=== PATIENT | female | born 1940 | race Caucasian/White ===

== ENCOUNTER 2016-11-20 15:55 | Inpatient (IN) | payer MEDICARE, MEDICAID ==
[~2016-11-20] VITALS: Ht 152.4 cm; Wt 99.4 kg
[2016-11-20 15:53] VITALS: BP 129/76; PULSE 71; RESP 21; O2SAT 94
[2016-11-20 16:16] LABS: BASOPHILS % (AUTO) 0.1 % (0-3); EOSINOPHILS % (AUTO) 0 % (0-5); MONOCYTES % (AUTO) 4.8 % (4-12); Mean Corpuscular Hemoglobin 28.6 pg (27.0-35.0); NEUTROPHILS % (AUTO) 79.6 % (40-74); Platelet Count 305 bil/L (150-400)
--- NOTE | 2016-11-20 16:25 | DRSVH ---
PROCEDURE: X-RAY CHEST ONE VIEW, PORTABLE ([id number]) INDICATIONS: SHORTNESS OF BREATH TECHNIQUE: One view of the chest was acquired. COMPARISON: None. FINDINGS: Surgical changes and devices: AICD is noted. Lungs and pleura: No pleural effusions or pneumothorax. Increased opacification of the lung bases bi laterally compatible with atelectasis, pneumonia or aspiration. Mediastinum: Mediastinal contours appear normal. Heart size is enlarged. Bones and chest wall: No suspicious bony lesions. Overlying soft tissues appear unremarkable. IMPRESSION: 1. Increased bibasilar opacification compatible with atelectasis, pneumonia or aspiration. Please cor relate with clinical and laboratory data. 2. Cardiomegaly. Dictated by: Corinne Badillo MD, PhD on 11/20/2016 at 16:23 Approved by: Corinne Badillo MD, PhD on 11/20/2016 at 16:24
--- NOTE | 2016-11-20 16:25 | ED.REPORT ---
HPI-Dyspnea / Wheezing Date of Service Nov 20, 2016 ED Provider: Alexi Russo MD A 76 year old female with an extensive medical history including hypertension, diabetes, peripheral neuropathy, CHF, and CAD s/p cardiac stenting and AICD pacemaker placement presents to the ED via EMS with shortness of breath onset two days ago. The patient also reports diarrhea, finger and toe paresthesias, memory problems, confusion, and feeling as though she is "not in her body." EMS found the patient breathing shallowly with a respiration rate of 34, a BP of 164 /70, and a pulse ox of 94% on 2L O2. The patient denies fever, chest pain, nausea, vomiting, dysuria, or other symptoms. She is bladder incontinent at baseline. The patient has been generally ill for the past three months with both influenza and pneumonia requiring hospitalizations. One week ago she was placed on a Prednisone taper and Zithromax for possible pneumonia, but finished the Zithromax two days ago. The patient is on 2L O2 at home. She comes from her assisted living home accompanied by her daughter. Nursing Notes Stated Complaint: SHORTNESS OF BREATH Chief Complaint: Respiratory Distress Nursing Notes Reviewed: Yes Allergies: Coded Allergies: Penicillins (Verified Allergy, Severe, Rash,Itching,, 11/20/16) celecoxib (Verified Allergy, Severe, Anaphylaxis, 11/20/16) levofloxacin (Verified Allergy, Severe, Extrapyramidal Symptoms, 11/20/16) primidone (Verified Allergy, Severe, Hallucinations, 11/20/16) Sulfa (Sulfonamide Antibiotics) (Verified Adverse Reaction, Severe, Nausea ,Vomiting, 11/20/16) acetaminophen (Verified Adverse Reaction, Severe, Nausea, 11/20/16) butorphanol (Verified Adverse Reaction, Severe, Nausea,Vomiting, 11/20/16) doxycycline (Verified Adverse Reaction, Severe, Diarrhea, 11/20/16) hydrocodone (Verified Adverse Reaction, Severe, Nausea, 11/20/16) fluoxetine (Verified Adverse Reaction, Unknown, 11/20/16) Scheduled Allopurinol (Allopurinol) 100 Mg Tablet 100 MG PO DAILY Aspirin (Aspirin) 81 Mg Tablet 81 MG PO DAILY Atorvastatin (Lipitor) 80 Mg Tablet 40 MG PO HS Beclomethasone Dipropionate (Qvar) 8.7 Gm Aer.w.adap 1 PUFF INHALATION BID Carvedilol (Carvedilol) 25 Mg Tablet 25 MG PO BID Cyanocobalamin (Vitamin B-12) (B-12) 2,500 Mcg Tab.subl 2,500 MCG SL DAILY Furosemide (Furosemide) 40 Mg Tablet 60 MG PO BID Gabapentin (Gabapentin) 600 Mg Tablet 600 MG PO TID Insulin Glargine (Lantus U100 Insulin Vial) 100 Unit/Ml Vial 90 UNIT SUBQ HS Isosorbide MN ER (Isosorbide MN ER) 30 Mg Tab.er.24h 30 MG PO DAILY Levothyroxine (Levothyroxine) 75 Mcg Tablet 75 MCG PO DAILY Lisinopril (Lisinopril) 10 Mg Tablet 5 MG PO DAILY Omeprazole (Omeprazole) 20 Mg Capsule.dr 20 MG PO BID Oxybutynin Chloride (Oxybutynin Chloride) 5 Mg Tablet 5 MG PO BID Potassium Chloride ER (Potassium Chloride ER) 10 Meq Tablet 5 MEQ PO DAILY TAKE WITH FOOD Prednisone (PredniSONE) 10 Mg Tablet 10 MG PO DAILY x4 more days (taper) Venlafaxine (Venlafaxine) 75 Mg Tablet 150 MG PO QAM Venlafaxine (Venlafaxine) 75 Mg Tablet 75 MG PO HS Scheduled PRN Albuterol Neb Soln (Albuterol Neb Soln) 0.63 Mg/3 Ml Vial.neb 0.63 MG INHALATION Q4H PRN PRN For Shortness of Breath Albuterol Sulfate (Ventolin HFA Inhaler) 200 Puff/18 Gm Inhaler 1-2 PUFFS INHALATION QID PRN PRN For Shortness of Breath Alprazolam (Alprazolam) 1 Mg Tablet 1 MG PO HS PRN PRN Insomnia Nitroglycerin SL (Nitrostat) 0.4 Mg Tab.subl 0.4 MG SL Q5MIN PRN PRN For Chest Pain Tizanidine (Tizanidine) 2 Mg Tablet 2 MG PO HS PRN PRN For Spasm oxyCODONE-Acetaminophen 5-325 mg (oxyCODONE-Acetaminophen 5-325 mg) 1 Each Tablet 1 EACH PO QID PRN PRN For Pain General Time Seen by MD: 16:23 Transferred From: retirement Chief Complaint Shortness of breath Hx Obtained From: Patient, Daughter Arrived By: Ambulance Sudden in Onset?: No Onset Occurred: 2 days ago Symptom Duration: Since onset Severity: Current: No pain currently Severity: Maximum: No pain Associated with: Denies: Chest pain Pertinent Negative: Relieved by nothing Context Related History: Reports: Anxiety, Congestive heart failure, Coronary artery disease, Pneumonia Recent Healthcare: Recent hospitalization Similar Sx Previous: Yes Past Medical History Past Medical History Notes: As of 11/20/16: Last admit August 2016 with Influenza at [facility] Past Medical History Hypertension Hypothyroidism Spinal stenosis Peripheral neuropathy GERD Obstructive sleep apnea w/o CPAP Anxiety Hyperlipidemia CHF CAD Diabetes mellitus on insulin Past Surgical History S/p CAD with stent placement, pacemaker placement, and AICD Hysterectomy Appendectomy Gastrectomy Lumbar fusion Bilateral knee replacements Right inguinal hernia repair Cardiac catheterization (July 2012 at [facility]) Social History Other Social History: Good social support, Lives in [facility] Review of Systems Review of Systems Note: + Finger and toe paresthesias Constitutional: Denies: Fever Respiratory: Reports: Shortness of breath Cardiovascular: Denies: Chest pain Complete sys rev & neg: except as marked. GI: Reports: Diarrhea, Denies: Nausea, Vomiting Female: Reports: Incontinence (At baseline), Denies: Dysuria Neurologic: Reports: Confusion ("Memory problems") Psychiatric: Reports: Change mental status (Feeling as though she is "not in her body.") Physical Exam Initial Vital Signs Vital Signs (First) Date Time Temp Pulse Resp B/P Pulse Ox O2 Delivery O2 Flow Rate FiO2 11/20/16 15:53 36.7 71 21 129/76 94 Nasal Cannula 2 Initial VS: Reviewed Head / Eyes: Atraumatic, Normocephalic Skin: Warm, Dry Psychiatric: Mood/affect normal, Behavior normal, Normal thought content General/Constitutional: Awake, Alert Respiratory / Chest: No respiratory distress Diminished Breath Sounds: Positive: Decreased L Wheezing / Retractions: Positive: Wheezing moderate (Scattered) Cardiovascular: Heart rate NL, Regular rhythm, No murmurs, No rubs Abdomen: Non-tender, BS normoactive Neurologic: Oriented X3, Speech NL Interpretation & Diagnostics ARTERIAL BLOOD GAS Time: 17:00 pH 7.47 pCO2 42 pO2 84.9 cHCO3 30 URINE DIPSTICK: 1.010 sp gravity 6 pH Normal Glucose Normal Urobilinogen Otherwise Negative Lab Results Interpretation Result Diagram: 11/20/16 1607 11/20/16 1607 Test 11/20/16 16:07 11/20/16 18:00 White Blood Count 13.5th/mm3 (3.8-10.1) Red Blood Count 3.91mil/mm3 (3.90-5.20) Hemoglobin 11.2g/dL (12.0-15.6) Hematocrit 35.6% (35.0-46.0) Mean Corpuscular Volume 91.0fL (81-100) Mean Corpuscular Hemoglobin 28.6pg (27.0-35.0) Mean Corpuscular Hemoglobin Concent 31.5% (32.0-37.0) Red Cell Distribution Width 15.8% (12.3-15.4) Platelet Count 305bil/L (150-400) Neutrophils (%) (Auto) 79.6% (40-74) Lymphocytes (%) (Auto) 14.9% (14-46) Monocytes (%) (Auto) 4.8% (4-12) Eosinophils (%) (Auto) 0% (0-5) Basophils (%) (Auto) 0.1% (0-3) Prothrombin Time 10.2sec (8.1-12.5) Prothromb Time International Ratio 0.95ratio Sodium Level 139mEq/L (134-144) Potassium Level 3.8mEq/L (3.5-5.2) Chloride Level 98mEq/L (97-108) Carbon Dioxide Level 26mmol/L (18-29) Blood Urea Nitrogen 17mg/dL (8-27) Creatinine 0.77mg/dL (0.57-1.00) Estimat Glomerular Filtration Rate 105mL/min (>59) Glucose Level 139mg/dL (60-99) Calcium Level 8.7mg/dL (8.5-10.1) Magnesium Level 1.8mg/dL (1.6-2.6) Total Bilirubin 0.2mg/dL (0.0-1.2) Aspartate Amino Transf (AST/SGOT) 11U/L (0-50) Alanine Aminotransferase (ALT/SGPT) 16U/L (0-32) Alkaline Phosphatase 79U/L (25-165) Troponin T < 0.010ug/L (0.0-0.011) Pro-B-Type Natriuretic Peptide 100.9pg/mL (0-738) Total Protein 6.4g/dL (6.4-8.4) Albumin 3.7g/dL (3.4-5.0) Hold Marquez Top Tube Received (Received) Urine Color Yellow (YELLOW) Urine Appearance Hazy (CLEAR,HAZY) Urine pH 6.5 (5.0-8.0) Urine Specific [place] 1.010 (1.003-1.035) Urine Protein Negativemg/dL (NEG,TRACE) Urine Glucose (UA) Negativemg/dL (NEGATIVE) Urine Ketones Negativemg/dL (NEGATIVE) Urine Occult Blood Negative (NEGATIVE) Urine Nitrite Negative (NEGATIVE) Urine Bilirubin Negative (NEGATIVE) Urine Urobilinogen Normalmg/dL (NORMAL) Urine Leukocyte Esterase Negative (NEGATIVE) Urine RBC 0-2/hpf (0-2) Urine WBC 0-5/hpf (0-5) Urine Epithelial Cells Moderate/hpf (NONE-MOD) Urine Crystals None seen (NONE SEEN) Urine Bacteria Few/hpf (NONE-FEW) Urine Hyaline Casts None/lpf (NONE) Urine Granular Casts None seen (NONE SEEN) Urine Waxy Casts None seen (NONE SEEN) Urine Red Blood Cell Casts None seen (NONE SEEN) Urine White Blood Cell Casts None seen (NONE SEEN) Urine Mucus None seen (None Seen) Urine Trichomonas None seen (NONE SEEN) Urine Yeast None (NONE SEEN) Urinalysis Comment None Urine Culture Reflexed Not indicated Pulse Oximetry Interpretation Pulse Oximetry Interpretation: 97% on 2L O2 ECG Interpretation ECG Interpretation: Paced rhythm rate 73 Time: 16:09 Interpreted by: ED physician X-Ray Chest Interpretation Chest Xray Interpretation: IMPRESSION: 1. Increased bibasilar opacification compatible with atelectasis, pneumonia or aspiration. Please correlate with clinical and laboratory data. 2. Cardiomegaly. Dictated by: Corinne Badillo MD, PhD on 11/20/2016 at 16:23 View: Portable, 1 view Interpretation / Wet Read by: Interpret - Radiologist Re-Eval/Medical Decision Med Decision/Clinical Course CURB-65 SCORE IS 2 FOR AGE AND CONFUSION Blood cultures were obtained, the patient is hemodynamically stable with a high normal lactate. She was given 1 L normal saline. She recently been on azithromycin, no recent hospitalizations, last admission was more than 3 months ago were not treated for healthcare associated pneumonia. IV Rocephin was started in the emergency department. We also did restart the azithromycin as IV. Source of Hx: Old records Re-Evaluation/Progress : Time of Eval: 18:12 Patient Status: Condition improved Re-Evaluation/Progress Note: Discussed with patient lab and x-ray results, diagnosis, and plan for admit. Patient agrees with plan for care and all questions were addressed. Code status discussed in the presence of her daughter. Patient is DNR. Consultation : Referral / Consult Name: Manuel Pickard MD Consulted With: Hospitalist Call Returned at: 20:18 Skein Inspector: Agrees with eval, Agrees with plan, Accepts admit Counseled Regarding: Diagnosis, Lab results, Need for admission Discharge & Departure Impression: Primary Impression: Pneumonia Pneumonia type: due to unspecified organism Laterality: bilateral Lung location: lower lobe of lung Qualified Code: J18.9 - Pneumonia, unspecified organism Disposition: ADMITTED TO HOSPITAL Discharge Condition All VS Reviewed: Yes Condition: Improved Scribe Attestation Portions of this note were transcribed by Angely Vazquez. I, Dr. Russo, personally performed the history, physical exam, and medical decision-making; I reviewed and confirmed the accuracy of the information in the transcribed note. Signed by: Amaya Torres, 11/20/2016, 2043 Alexi Russo MD Nov 20, 2016 16:25 ANGELY VAZQUEZ Nov 20, 2016 16:34
[2016-11-20 16:42] LABS: TROPONIN T < 0.010 ug/L (0.0-0.011)
[2016-11-20 16:48] LABS: Magnesium 1.8 mg/dL (1.6-2.6)
[2016-11-20 17:03] VITALS: BP 127/74; PULSE 71; RESP 19; O2SAT 97
--- NOTE | 2016-11-20 17:07 | ABG ---
DateTimeAnalyzed 17:04:00 -_ pH ____7.469 - 7.350 7.450 pCO2 ___41.9__ -mmHg 35.0 45.0 pO2 ___84.9__ -mmHg 69.0 116 HCO3- ___30.0__ -mmol/L 22.0 26.0 ABE ____6.1__ -mmol/L -2.0 2.0 tHb ___11.3__ -g/dL O2Hb ___95.8__ -% COHb ____1.0__ -% MetHb ____1.0__ -% sO2 ___97.8__ -% FIO2 ___28.0__ -% Drawn By as - Date/Time Notified____ 17:06:00 -_ Spontaneous_RR ___16.0__ -b/min Liter_Flow ____2.0__ -L/min Oxygen Device 1 __CANNULA - Notified By AMS - Notified Whom _DR SLACK - B 753 -mmHg tO2 ___15.3__ -Vol% Joe test _Positive -
[2016-11-20] MEDS ORDERED: cefTRIAXone Inj 2,000 MG in Dextrose 5% Minibag Plus 50 ML IV ONE (18:10)
[2016-11-20] MEDS ORDERED: Azithromycin Inj 500 MG in Dextrose 5% w/Vial Mate 250 ML IV ONE (18:10)
[2016-11-20 18:44] LABS: APPEARANCE,URINE HAZY (CLEAR,HAZY); COLOR,URINE YELLOW (YELLOW)
[2016-11-20 18:45] LABS: OCCULT BLOOD,URINE NEGATIVE (NEGATIVE); PH,URINE 6.5 (5.0-8.0); UROBILINOGEN,URINE NORMAL (NORMAL)
[2016-11-20] MEDS ORDERED: 0.9% Sodium Chloride 1,000 ML IV ONE (19:45)
[2016-11-20] MEDS ORDERED: Haloperidol 5 mg/mL Inj IVPUSH ONE (19:55)
[2016-11-20] MEDS ORDERED: BECL8.7A5 INHALATION (20:10)
[2016-11-20] MEDS ORDERED: OXYC1TAB24 PO (20:10)
[2016-11-20] MEDS ORDERED: ALBU18HF INHALATION (20:10)
[2016-11-20] MEDS ORDERED: ALPR1TAB7 PO (20:18)
[2016-11-20] MEDS ORDERED: 0.9% Sodium Chloride 1,000 ML IV SCH (20:33)
[2016-11-20] MEDS ORDERED: Polyethylene Glycol (PEG) 17 Gm Powder PO PRN (20:35)
[2016-11-20] MEDS ORDERED: Alum-Mag Hydrox-Simeth 30 mL Suspension PO PRN (20:35)
[2016-11-20 20:47] LABS: INR 0.95 ratio
[2016-11-20 20:49] VITALS: BP 139/61; PULSE 80; RESP 19; O2SAT 95
[2016-11-20] MEDS ORDERED: GABA600T2 PO (20:53)
[2016-11-20] MEDS ORDERED: OXYB5TAB10 PO (20:53)
[2016-11-20] MEDS ORDERED: ASPI-973 PO (20:53)
[2016-11-20] MEDS ORDERED: TIZA2TAB3 PO (20:53)
[2016-11-20] MEDS ORDERED: ALBU0.63 INHALATION (20:53)
[2016-11-20] MEDS ORDERED: OMEP20CA11 PO (20:53)
[2016-11-20] MEDS ORDERED: PSYL0.5244 PO (20:53)
[2016-11-20] MEDS ORDERED: CARV25TA2 PO (20:53)
[2016-11-20] MEDS ORDERED: ZYL100 PO (20:53)
[2016-11-20] MEDS ORDERED: FURO40TA4 PO (20:53)
[2016-11-20] MEDS ORDERED: PRE10 PO (20:53)
[2016-11-20] MEDS ORDERED: NITR0.4T SL (20:53)
[2016-11-20] MEDS ORDERED: CYAN25006 SL (20:53)
[2016-11-20] MEDS ORDERED: INSU100V7 SUBQ (20:53)
[2016-11-20] MEDS ORDERED: FLUT16SP NS (20:53)
[2016-11-20] MEDS ORDERED: ATOR80TA PO (20:53)
[2016-11-20] MEDS ORDERED: HYDR25TA4 PO (20:53)
[2016-11-20] MEDS ORDERED: LISI10TA PO (20:53)
[2016-11-20] MEDS ORDERED: ISOS30TA4 PO (20:53)
[2016-11-20] MEDS ORDERED: VENL75TA3 PO ×2 (20:53)
[2016-11-20] MEDS ORDERED: LEVO75TA4 PO (20:53)
[2016-11-20] MEDS ORDERED: POTA10TA12 PO (20:53)
[2016-11-20 21:13] VITALS: BP 169/75; PULSE 83; RESP 18; O2SAT 97
[2016-11-20] MEDS: Budesonide 0.5 mg/2 mL Inhalation Solution NEB SCH (21:30)
[2016-11-20] MEDS ORDERED: Glucose 40% Oral Gel 15 Gm Tube PO PRN (21:35)
[2016-11-20] MEDS: Insulin LISPRO 300 Unit/3 mL Inj SUBQ SCH (22:00)
[2016-11-20] MEDS: oxyCODONE-Acetamin 5-325 mg Tablet PO PRN (22:18)
--- NOTE | 2016-11-20 22:27 | PCM.HPMED ---
Subjective Date of Service Nov 20, 2016 Primary Provider: Admitting Physician: Manuel Pickard MD Primary Care Physician: Minerva Varma MD Attending Physician: Manuel Pickard MD Chief Complaint: Shortness of breath History of Present Illness: Patient is a 76 y.o. 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 She presented to the ED via EMS from [facility] with her daughter for worsening shortness of breath over the past two days with worsening non productive cough. Patient stated that she has become increasingly fatigued, short of breath, confused, she uses home oxygen, albuterol inhalers, and steroid inhaler and reported that she has had to increase her O2 at home from 2 L continous to 3 L and use her albuterol inhaler more but this has not made her better. She was seen by her PCP one week ago and placed on Xithromac and a predispose taper currently taking 10 mg PO QD, which she stated initially made her feel better but stopped working two days ago, patient reports good compliance with mediation. Patient denies fever, chills, nausea, vomiting, syncope, headache, change in vision, productive cough, coughing up blood, chest pain, chest pressure, edema in legs. Review of Systems: Comprehensive review of systems conducted and was negative except for the pertinent positives listed above. Allergies Coded Allergies: Penicillins (Verified Allergy, Severe, Rash,Itching,, 11/20/16) celecoxib (Verified Allergy, Severe, Anaphylaxis, 11/20/16) levofloxacin (Verified Allergy, Severe, Extrapyramidal Symptoms, 11/20/16) primidone (Verified Allergy, Severe, Hallucinations, 11/20/16) Sulfa (Sulfonamide Antibiotics) (Verified Adverse Reaction, Severe, Nausea ,Vomiting, 11/20/16) acetaminophen (Verified Adverse Reaction, Severe, Nausea, 11/20/16) butorphanol (Verified Adverse Reaction, Severe, Nausea,Vomiting, 11/20/16) doxycycline (Verified Adverse Reaction, Severe, Diarrhea, 11/20/16) hydrocodone (Verified Adverse Reaction, Severe, Nausea, 11/20/16) fluoxetine (Verified Adverse Reaction, Unknown, 11/20/16) Home Medications Albuterol Neb Albuterol inhaler Allopurinol 100 mg PO Daily Alprazolam 1 mg PO NGUYEN Aspirin 81 mg daily Qvar inhaler Carvedilol 25 mg PO BID Furosemide 60 mg BID Gabapentin 600 mg PO TID Insulin Glargine 90 units HS Isosorbide ER 30 mg PO QD Levothyroxine 75 mcg PO QD Lisinopril 10 mg PO QD Nitroglycerin 0.4 mg SL PRN for CP Omeprazole 20 mg BID Oxycodone 5-325 mg QD Tizanidine 2 mg PO HS PRN Venlafacine 150 mg PO AM and 75 mg PO HS PMH Diabetes Type II insulin dependent 90 units lantus HS, Hypertension Hypothyroidism Spinal stenosis Peripheral neuropathy GERD Obstructive sleep apnea w/o CPAP Anxiety Hyperlipidemia CHF CAD . Surgical History Cholecystectomy s/p CABG 2 vessels Appendectomy Bilateral knee replacement Back fusion IVCD placement Family History Breast cancer CAD Social History Hx Alcohol Use: No Hx Substance Use: No Hx Tobacco Use: No Exam Vital Signs Vital Sign - Last Date Time Temp Pulse Resp B/P Pulse Ox O2 Delivery O2 Flow Rate FiO2 11/20/16 21:13 36.6 83 18 169/75 97 Nasal Cannula 2.00 Exam General: Alert, Oriented X3, Cooperative, No Acute Distress Head: Normocephalic, atraumatic. External ears normal. Eyes: PERRLA, EOMI. Anicteric sclerae. Mouth: Mouth Normal, Mucous Membranes Moist/[place], ASA grade III Neck: Neck supple with full range of motion. Chest & Lungs: Crackles heard at right lower lung base, Diffuse expiratory and inspiratory wheezes, rhonchi in in all lung lo. Egophony noted in right lower lung base, old surgical scar noted Cardiovascular: Regular Rate/Rhythm, Normal S1, Normal S2, No Murmurs/Rubs/ Gallops Abdomen: Non-tender, Non-distended, No masses, Normoactive bowel tones, Soft Musculoskeletal: Normal Range of Motion Extremities: No cyanosis/clubbing/edema bilaterally Neurological: Grossly Neurologically Intact, Cranial Nerves 2-12 Intact, Normal Speech, Strength Normal 4/4 ext, Normal Gait, Sensation Intact, Cerebellar Function nl Finger-Nose Lab and Diagnostics Result Diagram: 11/20/16 1607 3/22/17 1607 X-Rays, CTs and MRIs Chest X-Ray IMPRESSION: 1. Increased bibasilar opacification compatible with atelectasis, pneumonia or aspiration. Please correlate with clinical and laboratory data. 2. Cardiomegaly. Dictated by: Corinne Badillo MD, PhD on 11/20/2016 at 16:23 Approved by: Corinne Badillo MD, PhD on 11/20/2016 at 16:24 Additional Diagnostics: ABG DateTimeAnalyzed 17:04:00 -_ pH ____7.469 - 7.350 7.450 pCO2 ___41.9__ -mmHg 35.0 45.0 pO2 ___84.9__ -mmHg 69.0 116 HCO3- ___30.0__ -mmol/L 22.0 26.0 Assessment & Plan Patient is a 76 y.o. F with past medical history of Diabetes Type II insulin dependent 90 units lantus HS, HTN, CHF with pace maker and defibrillator in place, [place] 1999's s/p CABG 2 vessel, DJD, Depression, baseline bladder and bowel incontinence, numbness and tingling in her legs due to DJD of lumbar spine. Admitted for treatment of right lower lobe pneumonia. 1. Community acquired Pneumonia, acute. Present on admission - Patient failed conservative outpatient therapy - CXR shows presence of right lower lobe pneumonia - WCT 13.5 - Lactic acid 2.0, Trend Q2 - Continue ceftriaxone, and azithromycin IV - Continue O2 4 L titrate to O2 sat 90-95 - Continuos Pulse Ox monitoring - Duoneb Q6 - Budesonide neb BID - Prednisone 40 mg PO for 5 days - Start incentive spirometry and Acapella - Procalcitonin ordered, pending - Sputum culture pending - Viral PCR ordered, pending - Repeat AM CBC, BMP - Repeat AM CXR Chronic Conditions DM Type II - Hold ome Lantus 90 units - Start 40 units Lantus - Diabetic diet 45 g carb - Med correctional insulin ordered HTN Continue home medications CHF - type unclear but likely chronic - Continue home medications - continue ASA 81 mg Hypothyroidism - Continue home levothyroxine Spinal stenosis - Continue home pain medicaiton Peripheral neuropathy GERD - Hold omeprazole Obstructive sleep apnea w/o CPAP - Continuos pulse ox monitoring Anxiety - Continue home medication Hyperlipidemia -Hold statin CODE STATUS: DNR/DNI DVT prophylaxis: Sub Q heparin Patient is admitted under inpatient status with expected length of stay greater than 2 midnights due to severity of presenting symptoms, risk of adverse event, and complexity of treatment plan. Pain Evaluation: Adequate Pain Control VTE Prophylaxis: Sub-Q Heparin (Unfractionated) Attending Statement The patient was seen and examined together with Dr. Ocampo on 11/20 and I agree with the history, exam and plan as outlined in the note above. JOSH OCAMPO DO Nov 20, 2016 22:27 Manuel Pickard MD Nov 21, 2016 00:22
[2016-11-20] MEDS: Heparin 5,000 Unit/mL Inj SUBQ SCH (22:53)
[2016-11-20] MEDS: ALPRAZolam 0.5 mg Tablet PO PRN (23:55)
[2016-11-21] VITALS (12 sets, daily range): BP systolic 113–150; BP diastolic 65–72; PULSE 64–85; RESP 18–21; O2SAT 92–98
[2016-11-21] MEDS: Albuterol-Ipratropium 3 mL Inhalation Solution NEB SCH ×4 (02:16→20:08)
[2016-11-21] MEDS: Heparin 5,000 Unit/mL Inj SUBQ SCH ×3 (06:13→21:34)
[2016-11-21 07:12] LABS: BASOPHILS % (AUTO) 0.2 % (0-3); EOSINOPHILS % (AUTO) 0.8 % (0-5); MONOCYTES % (AUTO) 6.8 % (4-12); Mean Corpuscular Hemoglobin 28.7 pg (27.0-35.0); Mean Corpuscular Volume 92.2 fL (81-100); Platelet Count 284 bil/L (150-400)
[2016-11-21] MEDS: Insulin LISPRO 300 Unit/3 mL Inj SUBQ SCH ×4 (08:00→22:00)
[2016-11-21] MEDS: Budesonide 0.5 mg/2 mL Inhalation Solution NEB SCH ×2 (08:10→20:08)
[2016-11-21] MEDS: Potassium Chloride 20 mEq SR Tablet PO SCH (08:37)
[2016-11-21] MEDS: Pantoprazole 40 mg ER24 Tablet PO SCH ×2 (08:38→16:47)
[2016-11-21] MEDS: Isosorbide Mononitrate 30 mg ER24 Tablet PO SCH (08:39)
[2016-11-21] MEDS: predniSONE 20 mg Tablet PO SCH (08:39)
[2016-11-21] MEDS: Azithromycin Inj 500 MG in Dextrose 5% w/Vial Mate 250 ML IV SCH (08:40)
[2016-11-21] MEDS: cefTRIAXone Inj 2,000 MG in Dextrose 5% Minibag Plus 50 ML IV SCH (10:05)
--- NOTE | 2016-11-21 10:42 | DRSVH ---
PROCEDURE: X-RAY CHEST ONE VIEW, PORTABLE ([id number]) INDICATIONS: SHORT OF BREATH TECHNIQUE: One view of the chest was acquired. COMPARISON: [facility], CR, XR CHEST 1VW (PORTABLE), 11/20/2016, 16:13. FINDINGS: Surgical changes and devices: Stable position left chest AICD. Lungs and pleura: No pleural effusions or pneumothorax. Persistent bibasilar airspace opacities. Mediastinum: Mediastinal contours appear normal. Heart size is normal. Bones and chest wall: No suspicious bony lesions. Overlying soft tissues appear unremarkable. IMPRESSION: Bibasilar atelectasis versus aspiration or pneumonia. Correlate clinically. Dictated by: Tyron Nye RRA Interpreted: Corinne Badillo MD on 11/21/2016 at 10:41 Transcribed by: OLINDA on 11/21/2016 at 10:42 Approved by: Corinne Badillo MD, PhD on 11/21/2016 at 16:51
[2016-11-21] MEDS: oxyCODONE-Acetamin 5-325 mg Tablet PO PRN ×3 (11:46→21:32)
[2016-11-21] MEDS: Insulin GLARgine 100 Unit/mL Syringe SUBQ SCH (21:35)
[2016-11-21] MEDS: ALPRAZolam 0.5 mg Tablet PO PRN (22:58)
[2016-11-22] VITALS (11 sets, daily range): BP systolic 103–145; BP diastolic 59–76; PULSE 67–73; RESP 18–20; O2SAT 92–98
--- NOTE | 2016-11-22 00:06 | PCM.PNMED ---
Subjective Date of Service Nov 21, 2016 Subjective Patient is beginning to feel a bit better. She has no new complaints. He is breathing better. She has less cough. She is in good spirits. Exam Vital Signs Vital Sign - Last Date Time Temp Pulse Resp B/P Pulse Ox O2 Delivery O2 Flow Rate FiO2 11/21/16 23:24 Supplement Oxygen 11/21/16 22:29 36.7 75 18 146/70 93 2.00 Intake and Output 11/20/16 11/20/16 11/21/16 Cumulative From/Thru 15:00 23:00 07:00 11/20/16 15:53 - 11/21/16 06:40 Intake Total 1000 ml 830 ml 1830 ml Output Total 100 ml 100 ml Balance 900 ml 830 ml 1730 ml IV Total 1000 ml 830 ml 1830 ml Output Urine Total 100 ml 100 ml # Voids 1 1 Exam General: Patient is lying in bed with head elevated approximately 30-45. She is in no apparent distress at present time. HEENT: Head is atraumatic and normocephalic. Eyes: Pupils are equally round and reactive to light and accommodation. Extraocular muscles are intact. Sclera are white, anicteric. Subconjunctival mucosa is pink. Ears and nose are unremarkable. Oropharynx: There is no mucosal lesions, there is no thrush, there is no pharyngitis. Neck: Is supple, there are no nodes, or masses or tenderness. Chest: Is significant for decreased breath sounds with crackles at the bases. Heart: Rate, rhythm is regular. There is no murmur, rub or gallop. Abdomen: Good bowel sounds are present. Abdomen is obese, soft, nontender, no organomegaly or masses were appreciated. Extremities: Are symmetrical and well perfused. There is no edema, there is no cellulitis, no rash. Neurologic: There are no focal neurological deficits. Cranial nerves II through XII are intact. There are no sensory or motor deficits. Psychiatric: Patients mood is calm and shows no sign of agitation. Genital: Deferred Rectal: Deferred Lab and Diagnostics Result Diagram: 11/21/16 0650 11/21/16 0650 X-Rays, CTs and MRIs Chest X-Ray IMPRESSION: 1. Increased bibasilar opacification compatible with atelectasis, pneumonia or aspiration. Please correlate with clinical and laboratory data. 2. Cardiomegaly. Dictated by: Corinne Badillo MD, PhD on 11/20/2016 at 16:23 Approved by: Corinne Badillo MD, PhD on 11/20/2016 at 16:24 PROCEDURE: X-RAY CHEST ONE VIEW, PORTABLE ([id number]) INDICATIONS: SHORT OF BREATH TECHNIQUE: One view of the chest was acquired. COMPARISON: [facility], CR, XR CHEST 1VW (PORTABLE), 11/20/2016, 16: 13. FINDINGS: Surgical changes and devices: Stable position left chest AICD. Lungs and pleura: No pleural effusions or pneumothorax. Persistent bibasilar airspace opacities. Mediastinum: Mediastinal contours appear normal. Heart size is normal. Bones and chest wall: No suspicious bony lesions. Overlying soft tissues appear unremarkable. IMPRESSION: Bibasilar atelectasis versus aspiration or pneumonia. Correlate clinically. Dictated by: Tyron Nye RRA Interpreted: Corinne Badillo MD on 11/21/2016 at 10:41 Transcribed by: OLINDA on 11/21/2016 at 10:42 Approved by: Corinne Badillo MD, PhD on 11/21/2016 at 16:51 Additional Diagnostics ABG DateTimeAnalyzed 17:04:00 -_ pH ____7.469 - 7.350 7.450 pCO2 ___41.9__ -mmHg 35.0 45.0 pO2 ___84.9__ -mmHg 69.0 116 HCO3- ___30.0__ -mmol/L 22.0 26.0 Assessment & Plan Patient is a 76 y.o. 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 Admitted for treatment of right lower lobe pneumonia. 1. Community acquired Pneumonia, acute. Present on admission - Patient failed conservative outpatient therapy - CXR shows presence of right lower lobe pneumonia and bibasilar infiltrates. There is a question of aspiration. Therefore, will check swallow evaluation with speech therapy. - WCT 13.5 - Lactic acid 2.0, Trend Q2 - Continue ceftriaxone, and azithromycin IV day #2 - Continue O2 4 L titrate to O2 sat 90-95 - Continuos Pulse Ox monitoring - Duoneb Q6 - Budesonide neb BID - Prednisone 40 mg PO for 5 days - Start incentive spirometry and Acapella - Procalcitonin ordered, pending - Sputum culture pending - Viral PCR ordered, pending - Repeat AM CBC, BMP - Repeat AM CXR Chronic Conditions DM Type II - Hold ome Lantus 90 units - Started 40 units Lantus - Diabetic diet 45 g carb - Med correctional insulin ordered HTN Continue home medications CHF - type unclear but likely chronic, will check echocardiogram. - Continue home medications - continue ASA 81 mg Hypothyroidism - Continue home levothyroxine Spinal stenosis - Continue home pain medicaiton Peripheral neuropathy GERD - Hold omeprazole Obstructive sleep apnea w/o CPAP - Continuos pulse ox monitoring Anxiety - Continue home medication Hyperlipidemia -Hold statin Disposition: Patient is likely to be here another 24-48 hours for treatment of the above conditions. Dr. Ferreira following a.m. Pain Evaluation: Adequate Pain Control GI Prophylaxis: Proton Pump Inhibitor VTE Prophylaxis: Sub-Q Heparin (Unfractionated) VTE Mechanical Devices: Intermittant Pneumatic CD Resuscitation Status: CPR: Attempt Resuscitation Harman Shell MD Nov 22, 2016 00:06
[2016-11-22] MEDS: Albuterol-Ipratropium 3 mL Inhalation Solution NEB SCH ×4 (02:45→20:31)
[2016-11-22 06:14] LABS: BASOPHILS % (AUTO) 0.1 % (0-3); EOSINOPHILS % (AUTO) 0.4 % (0-5)
[2016-11-22 06:18] LABS: MONOCYTES % (AUTO) 8.2 % (4-12); Mean Corpuscular Hemoglobin 28.8 pg (27.0-35.0); NEUTROPHILS % (AUTO) 66.8 % (40-74); Platelet Count 305 bil/L (150-400)
[2016-11-22] MEDS: Heparin 5,000 Unit/mL Inj SUBQ SCH ×3 (06:32→21:21)
[2016-11-22 06:39] LABS: TROPONIN T 0.01 ug/L (0.0-0.011)
[2016-11-22 07:36] LABS: ERYTHROCYTE SEDIMENTATION RATE 23 mm/hr (0-40)
[2016-11-22] MEDS: Insulin LISPRO 300 Unit/3 mL Inj SUBQ SCH ×4 (07:36→21:22)
[2016-11-22] MEDS: oxyCODONE-Acetamin 5-325 mg Tablet PO PRN ×4 (08:30→19:54)
[2016-11-22] MEDS: Budesonide 0.5 mg/2 mL Inhalation Solution NEB SCH ×2 (08:56→20:31)
[2016-11-22] MEDS: Pantoprazole 40 mg ER24 Tablet PO SCH ×2 (09:28→16:46)
[2016-11-22] MEDS: predniSONE 20 mg Tablet PO SCH (09:28)
[2016-11-22] MEDS: Isosorbide Mononitrate 30 mg ER24 Tablet PO SCH (09:28)
[2016-11-22] MEDS: Potassium Chloride 20 mEq SR Tablet PO SCH (09:28)
[2016-11-22] MEDS: cefTRIAXone Inj 2,000 MG in Dextrose 5% Minibag Plus 50 ML IV SCH (09:30)
[2016-11-22] MEDS ORDERED: KCl 40 mEq/D5W 500 mL 40 MEQ in IV Premix 1 EACH IV ONE (10:05)
--- NOTE | 2016-11-22 10:05 | PCM.PNMED ---
Subjective Date of Service Nov 22, 2016 Subjective - No acute events over night. - Pt seen and examined bed side this morning. AAO x3 - c/o mild shortness of breath. Denies any chest pain. Exam Vital Signs Vital Sign - Last Date Time Temp Pulse Resp B/P Pulse Ox O2 Delivery O2 Flow Rate FiO2 11/22/16 08:40 67 20 94 Nasal Cannula 2.00 11/22/16 08:34 36.3 145/73 Intake and Output 11/21/16 11/21/16 11/22/16 Cumulative From/Thru 15:00 23:00 07:00 11/20/16 15:53 - 11/21/16 23:24 Intake Total 356 ml 550 ml 2736 ml Output Total 450 ml 550 ml Balance 356 ml 100 ml 2186 ml Intake Oral 550 ml 550 ml IV Total 356 ml 2186 ml Output Urine Total 450 ml 550 ml # Voids 4 5 # Bowel Movements 3 3 Exam General: Patient is lying in bed with head elevated approximately 30-45. She is in no apparent distress at present time. HEENT: Head is atraumatic and normocephalic. Eyes: Pupils are equally round and reactive to light and accommodation. Extraocular muscles are intact. Sclera are white, anicteric. Subconjunctival mucosa is pink. Ears and nose are unremarkable. Oropharynx: There is no mucosal lesions, there is no thrush, there is no pharyngitis. Neck: Is supple, there are no nodes, or masses or tenderness. Chest: Is significant for decreased breath sounds with crackles at the bases. Heart: Rate, rhythm is regular. There is no murmur, rub or gallop. Abdomen: Good bowel sounds are present. Abdomen is obese, soft, nontender, no organomegaly or masses were appreciated. Extremities: Are symmetrical and well perfused. There is no edema, there is no cellulitis, no rash. Neurologic: There are no focal neurological deficits. Cranial nerves II through XII are intact. There are no sensory or motor deficits. Psychiatric: Patients mood is calm and shows no sign of agitation. IVs and Medications Medications Reviewed: Medications were reviewed in detail Lab and Diagnostics Result Diagram: 11/22/16 0535 11/22/16 0535 X-Rays, CTs and MRIs Chest X-Ray IMPRESSION: 1. Increased bibasilar opacification compatible with atelectasis, pneumonia or aspiration. Please correlate with clinical and laboratory data. 2. Cardiomegaly. Dictated by: Corinne Badillo MD, PhD on 11/20/2016 at 16:23 Approved by: Corinne Badillo MD, PhD on 11/20/2016 at 16:24 PROCEDURE: X-RAY CHEST ONE VIEW, PORTABLE ([id number]) INDICATIONS: SHORT OF BREATH TECHNIQUE: One view of the chest was acquired. COMPARISON: [facility], CR, XR CHEST 1VW (PORTABLE), 11/20/2016, 16: 13. FINDINGS: Surgical changes and devices: Stable position left chest AICD. Lungs and pleura: No pleural effusions or pneumothorax. Persistent bibasilar airspace opacities. Mediastinum: Mediastinal contours appear normal. Heart size is normal. Bones and chest wall: No suspicious bony lesions. Overlying soft tissues appear unremarkable. IMPRESSION: Bibasilar atelectasis versus aspiration or pneumonia. Correlate clinically. Dictated by: Tyron Nye RRA Interpreted: Corinne Badillo MD on 11/21/2016 at 10:41 Transcribed by: OLINDA on 11/21/2016 at 10:42 Approved by: Corinne Badillo MD, PhD on 11/21/2016 at 16:51 Additional Diagnostics ABG DateTimeAnalyzed 17:04:00 -_ pH ____7.469 - 7.350 7.450 pCO2 ___41.9__ -mmHg 35.0 45.0 pO2 ___84.9__ -mmHg 69.0 116 HCO3- ___30.0__ -mmol/L 22.0 26.0 Assessment & Plan 76 y.o. F with past medical history of Diabetes Type II insulin dependent 90 units lantus HS, HTN, CHF with pace maker and defibrillator in place, [place] 1999's s/p CABG 2 vessel, DJD, Depression, baseline bladder and bowel incontinence, numbness and tingling in her legs due to DJD of lumbar spine. Admitted for treatment of right lower lobe pneumonia. 1. Community acquired Pneumonia, acute. Present on admission - Patient failed conservative outpatient therapy - CXR shows presence of right lower lobe pneumonia and bibasilar infiltrates. There is a question of aspiration. Therefore, will check swallow evaluation with speech therapy. - WCT 13.5 - Lactic acid 2.0, Trend Q2 - Continue ceftriaxone, and azithromycin IV day #2 - Continue O2 4 L titrate to O2 sat 90-95 - Continuos Pulse Ox monitoring - Duoneb Q6 - Budesonide neb BID - Prednisone 40 mg PO for 5 days - Start incentive spirometry and Acapella - Procalcitonin: 0.04 - Sputum culture : negative - Blood culture: prelim negative after 24 hours Chronic Conditions DM Type II - Hold ome Lantus 90 units - Started 40 units Lantus - Diabetic diet 45 g carb - Med correctional insulin ordered HTN Continue home medications CHF - type unclear but likely chronic, will check echocardiogram. - Continue home medications - continue ASA 81 mg Hypothyroidism - Continue home levothyroxine Spinal stenosis - Continue home pain medicaiton Peripheral neuropathy GERD - Hold omeprazole Obstructive sleep apnea w/o CPAP - Continuos pulse ox monitoring Anxiety - Continue home medication Hyperlipidemia -Hold statin Disposition: Patient is likely to be here another 24-48 hours for treatment of the above conditions. Dr. Ferreira following a.m. GI Prophylaxis: Proton Pump Inhibitor VTE Prophylaxis: Sub-Q Heparin (Unfractionated) VTE Mechanical Devices: Intermittant Pneumatic CD Resuscitation Status: CPR: Attempt Resuscitation Facundo Ferreira MD Nov 22, 2016 10:05
[2016-11-22] MEDS: Azithromycin Inj 500 MG in Dextrose 5% w/Vial Mate 250 ML IV SCH (10:20)
[2016-11-22] MEDS ORDERED: 0.9% Sodium Chloride 250 ML ONE (10:37)
[2016-11-22] MEDS: Insulin GLARgine 100 Unit/mL Syringe SUBQ SCH (21:22)
[2016-11-22] MEDS: ALPRAZolam 0.5 mg Tablet PO PRN (22:45)
[2016-11-23] VITALS (12 sets, daily range): BP systolic 121–142; BP diastolic 57–68; PULSE 64–85; RESP 18–20; O2SAT 92–96
[2016-11-23] MEDS: oxyCODONE-Acetamin 5-325 mg Tablet PO PRN ×5 (00:07→19:58)
[2016-11-23] MEDS: Albuterol-Ipratropium 3 mL Inhalation Solution NEB SCH ×4 (02:04→20:56)
[2016-11-23] MEDS: Heparin 5,000 Unit/mL Inj SUBQ SCH ×3 (05:04→21:43)
[2016-11-23 06:12] LABS: BASOPHILS % (AUTO) 0.2 % (0-3); EOSINOPHILS % (AUTO) 0.3 % (0-5); MONOCYTES % (AUTO) 8.2 % (4-12); Mean Corpuscular Hemoglobin 28.4 pg (27.0-35.0); Mean Corpuscular Volume 90.1 fL (81-100); Platelet Count 284 bil/L (150-400)
[2016-11-23] MEDS: Insulin LISPRO 300 Unit/3 mL Inj SUBQ SCH ×4 (07:22→21:46)
[2016-11-23] MEDS: cefTRIAXone Inj 2,000 MG in Dextrose 5% Minibag Plus 50 ML IV SCH (08:21)
[2016-11-23] MEDS: predniSONE 20 mg Tablet PO SCH (08:28)
[2016-11-23] MEDS: Isosorbide Mononitrate 30 mg ER24 Tablet PO SCH (08:31)
[2016-11-23] MEDS: Pantoprazole 40 mg ER24 Tablet PO SCH ×2 (08:33→17:27)
[2016-11-23] MEDS: Potassium Chloride 20 mEq SR Tablet PO SCH (08:34)
[2016-11-23] MEDS: Budesonide 0.5 mg/2 mL Inhalation Solution NEB SCH ×2 (08:48→20:56)
[2016-11-23] MEDS: Azithromycin Inj 500 MG in Dextrose 5% w/Vial Mate 250 ML IV SCH (09:17)
--- NOTE | 2016-11-23 10:28 | PCM.PNMED ---
Subjective Date of Service Nov 23, 2016 Subjective - Pt seen and examined this morning. SHe is AAO x 3 - Denies any new complaints. States that her breathing is better than yesterday. She is still c/o mild shortness of breath. - Denies chest pain. Exam Vital Signs Vital Sign - Last Date Time Temp Pulse Resp B/P Pulse Ox O2 Delivery O2 Flow Rate FiO2 11/23/16 10:05 75 11/23/16 08:50 Supplement Oxygen 11/23/16 08:48 18 94 2.00 11/23/16 08:45 36.7 132/57 Intake and Output 11/22/16 11/22/16 11/23/16 Cumulative From/Thru 15:00 23:00 07:00 11/20/16 15:53 - 11/23/16 03:44 Intake Total 400 ml 925 ml 4061 ml Output Total 700 ml 1250 ml Balance -300 ml 925 ml 2811 ml Intake Oral 400 ml 950 ml IV Total 925 ml 3111 ml Output Urine Total 700 ml 1250 ml # Voids 5 # Bowel Movements 3 IVs and Medications Medications Reviewed: Medications were reviewed in detail Lab and Diagnostics Result Diagram: 11/23/16 0555 11/23/16 0555 X-Rays, CTs and MRIs Chest X-Ray IMPRESSION: 1. Increased bibasilar opacification compatible with atelectasis, pneumonia or aspiration. Please correlate with clinical and laboratory data. 2. Cardiomegaly. Dictated by: Corinne Badillo MD, PhD on 11/20/2016 at 16:23 Approved by: Corinne Badillo MD, PhD on 11/20/2016 at 16:24 PROCEDURE: X-RAY CHEST ONE VIEW, PORTABLE ([id number]) INDICATIONS: SHORT OF BREATH TECHNIQUE: One view of the chest was acquired. COMPARISON: [facility], CR, XR CHEST 1VW (PORTABLE), 11/20/2016, 16: 13. FINDINGS: Surgical changes and devices: Stable position left chest AICD. Lungs and pleura: No pleural effusions or pneumothorax. Persistent bibasilar airspace opacities. Mediastinum: Mediastinal contours appear normal. Heart size is normal. Bones and chest wall: No suspicious bony lesions. Overlying soft tissues appear unremarkable. IMPRESSION: Bibasilar atelectasis versus aspiration or pneumonia. Correlate clinically. Dictated by: Tyron Nye RRA Interpreted: Corinne Badillo MD on 11/21/2016 at 10:41 Transcribed by: OLINDA on 11/21/2016 at 10:42 Approved by: Corinne Badillo MD, PhD on 11/21/2016 at 16:51 Additional Diagnostics ABG DateTimeAnalyzed 17:04:00 -_ pH ____7.469 - 7.350 7.450 pCO2 ___41.9__ -mmHg 35.0 45.0 pO2 ___84.9__ -mmHg 69.0 116 HCO3- ___30.0__ -mmol/L 22.0 26.0 Assessment & Plan 76 y.o. F with past medical history of Diabetes Type II insulin dependent 90 units lantus HS, HTN, CHF with pace maker and defibrillator in place, [place] 1999's s/p CABG 2 vessel, DJD, Depression, baseline bladder and bowel incontinence, numbness and tingling in her legs due to DJD of lumbar spine. Admitted for treatment of right lower lobe pneumonia. 1. Community acquired Pneumonia, acute. Present on admission - Patient failed conservative outpatient therapy - CXR shows presence of right lower lobe pneumonia and bibasilar infiltrates. - WCT 13.5 - Lactic acid 2.0, Trend Q2 - Continue ceftriaxone, and azithromycin day # 3 - Continue O2 4 L titrate to O2 sat 90-95 - Continuos Pulse Ox monitoring - Duoneb Q6, Budesonide neb BID - Prednisone 40 mg PO for 5 days - Start incentive spirometry and Acapella - Procalcitonin: 0.04 - Sputum culture : negative - Blood culture: prelim negative after 48 hours Chronic Conditions DM Type II - Hold ome Lantus 90 units - Started 40 units Lantus - Diabetic diet 45 g carb - Med correctional insulin ordered HTN Continue home medications CHF - type unclear but likely chronic, will check echocardiogram. - Continue home medications - continue ASA 81 mg Hypothyroidism - Continue home levothyroxine Spinal stenosis - Continue home pain medicaiton Peripheral neuropathy GERD - Hold omeprazole Obstructive sleep apnea w/o CPAP - Continuos pulse ox monitoring Anxiety - Continue home medication Hyperlipidemia -Hold statin Disposition: Patient is likely to be here another 24-48 hours for treatment of the above conditions. GI Prophylaxis: Proton Pump Inhibitor VTE Prophylaxis: Sub-Q Heparin (Unfractionated) VTE Mechanical Devices: Intermittant Pneumatic CD Resuscitation Status: CPR: Attempt Resuscitation Facundo Ferriera MD Nov 23, 2016 10:28
--- NOTE | 2016-11-23 10:52 | DRSVH ---
Merged With [facility] [address] [place] [address] Echocardiogram Report Name: ROGE BERNARD CStudy Date: 11/23/2016 Height: 60 in Hospital Exam Location: [facility] Weight: 219 lb Gender: Female BSA: 1.9 m2 : 1940 Age: 76 yrs BP: 133/65 mmHg Reason For Study: Pneumonia Ordering Physician: Performed By: Karrie [facility] Interpretation Summary Normal sinus rhythm. Normal LV size, wall thickness, wall motion and LV systolic function. EF is 60-65%. There is distal septal dyssynchrony consistent with RV pacing. Normal chamber sizes. No significant valvular abnormalities. There is a pacing lead traversing the tricuspid valve with trace associated TR. Estimated PA systolic pressure is 28 mm Hg assuming RA pressure of 3 mm Hg. No prior study available for comparison. Procedure: A two-dimensional transthoracic echocardiogram with color flow and Doppler was performed. The study quality was technically adequate. There is no prior echocardiogram noted for this patient. The patient has a paced rhythm. Left Ventricle: The left ventricle is normal in size. There is normal left ventricular wall thickness. The ejection fraction is estimated to be 55-60%. There is a slight dyssynchronous contraction pattern due to the paced rhythm. Assessment of diastolic parameters indicates normal left ventricular diastolic function and normal filling pressures. Right Ventricle: The right ventricle is normal in size, thickness and function. There is a pacemaker lead in the right ventricle. Atria: The left atrial size is normal. Right atrial size is normal. There is a catheter/pacemaker lead seen in the right atrium. The interatrial septum is intact with no evidence for an atrial septal defect. Mitral Valve: The mitral valve is normal in structure and function. There is no mitral regurgitation noted. Aortic Valve: The aortic valve opens well. There is mild aortic valve sclerosis. There is mild aortic regurgitation. Tricuspid Valve: The tricuspid valve is normal in structure and function. There is trace tricuspid regurgitation. The right ventricular systolic pressure is estimated at 28 mmHg assuming a right atrial pressure of 3 mm Hg. Pulmonic Valve: The pulmonic valve is not well seen, but is grossly normal. There is no pulmonic valvular regurgitation. Great Vessels: The aortic root is normal size. The dimensions of the ascending aorta are normal. The IVC is of normal diameter and collapses greater than 50% with a sniff. This suggests a low right atrial pressure of 3 mm Hg. Pericardium/ Pleura There is no pericardial effusion. There is no pleural effusion. MMode/2D Measurements & Calculations LVIDd: 5.3 cm LA dimension: 3.9 cm RA long axis Ao root diam LVIDs: 3.3 cm FS: 38.9 % LA A2 area: 18.1 cm RA area Aortic Jxn: 2.3 cm IVSd: 0.91 cm LA A4 area: 24.9 cm asc Aorta Diam LVPWd: 0.95 cm LA length (vol) : 14.6 cm RA vol Ao Arch Diam (Prox LA vol: 61.7 ml : 36.1 ml Trans): 3.1 cm LA vol index RA : 18.6 mm/ RVDd major IVC diam: 1.7 cm : 4.4 cm LV nickerson. diameter/BSA LV sys. diameter/BSA RVD1 (basal) RVD2 (mid): 2.6 cm (cm/m^2): 2.8 (cm/m^2): 1.7 Doppler Measurements & Calculations Ao V2 max MV E max ramos MV E/A: 0.95 TR max ramos : 186.0 cm/sec : 89.7 cm/sec Med Peak E' Ramos : 248.0 cm/sec Ao max PG MV A max ramos TR max PG : 13.8 mmHg : 94.2 cm/sec E/E' med: 12.5 : 24.6 mmHg Ao mean PG MV P1/2t: 65.2 msec Lat Peak E' Ramos PA V2 max : 128.2 cm/sec AI P1/2t E/E' lat: 14.4 PA mean PG : 386.8 msec E/e' average: 13.5 AI dec slope MV A dur: 0.15 sec PA Accel Time : 340.2 cm/s2c : 0.14 sec MV dec time MV P1/2t max ramos Ao V2 mean PA V2 mean : 0.22 sec : 132.3 cm/sec : 94.5 cm/sec Ao V2 VTI: 45.8 cm MVA(P1/2t): 3.4 cm2 Reading Physician:10:51 AM
[2016-11-23] MEDS: Insulin GLARgine 100 Unit/mL Syringe SUBQ SCH (21:46)
[2016-11-23] MEDS: ALPRAZolam 0.5 mg Tablet PO PRN (23:18)
[2016-11-24] VITALS (7 sets, daily range): BP systolic 103–156; BP diastolic 49–73; PULSE 62–71; RESP 16–18; O2SAT 93–97
[2016-11-24] MEDS: oxyCODONE-Acetamin 5-325 mg Tablet PO PRN ×3 (00:45→10:44)
[2016-11-24] MEDS: Albuterol-Ipratropium 3 mL Inhalation Solution NEB SCH ×2 (01:58→09:51)
[2016-11-24] MEDS: Heparin 5,000 Unit/mL Inj SUBQ SCH ×2 (05:39→12:32)
[2016-11-24 06:23] LABS: BASOPHILS % (AUTO) 0.1 % (0-3); EOSINOPHILS % (AUTO) 0.4 % (0-5); MONOCYTES % (AUTO) 7.8 % (4-12); Mean Corpuscular Hemoglobin 28.7 pg (27.0-35.0); Mean Corpuscular Volume 89.8 fL (81-100); NEUTROPHILS % (AUTO) 66.9 % (40-74); Platelet Count 280 bil/L (150-400)
[2016-11-24] MEDS: Insulin LISPRO 300 Unit/3 mL Inj SUBQ SCH ×2 (08:00→12:33)
[2016-11-24] MEDS: Potassium Chloride 20 mEq SR Tablet PO SCH (08:35)
[2016-11-24] MEDS: Pantoprazole 40 mg ER24 Tablet PO SCH (08:35)
[2016-11-24] MEDS: Isosorbide Mononitrate 30 mg ER24 Tablet PO SCH (08:37)
[2016-11-24] MEDS: predniSONE 20 mg Tablet PO SCH (08:39)
[2016-11-24] MEDS: cefTRIAXone Inj 2,000 MG in Dextrose 5% Minibag Plus 50 ML IV SCH (08:51)
--- NOTE | 2016-11-24 09:26 | PCM.DIMED ---
Discharge Instructions Date of Service Nov 24, 2016 Dates of Hospitalization Nov 20, 2016 at 20:22 Discharge Diagnosis Discharge Diagnosis - Community acquired pneumonia Diet Heart Healthy, Diabetic Call your provider Fever or Chills, Shortness of breath, Bleeding, Chest pain, Vomitting, Excessive diarrhea, Weakness (unilateral) Patient Instructions Follow-up with PCP in: 2 weeks Facundo Ferreira MD Nov 24, 2016 09:26
[2016-11-24] MEDS ORDERED: CEFU500T61 PO (09:31)
[2016-11-24] MEDS ORDERED: AZIT500T5 PO (09:31)
--- NOTE | 2016-11-24 09:33 | PCM.DC.MED ---
Discharge Summary Date of Service Nov 24, 2016 Dates of Hospitalization Date of Hospital Admission Nov 20, 2016 at 20:22 Date of Discharge: Nov 24, 2016 Providers: Admitting Physician: Manuel Pickard MD Primary Care Physician: Minerva Varma MD Attending Physician: Manuel Pickard MD Diagnosis at Time of Discharge Diagnosis at Time of Discharge - Community acquired pneumonia Procedures XRay, CTs & MRIs Chest X-Ray IMPRESSION: 1. Increased bibasilar opacification compatible with atelectasis, pneumonia or aspiration. Please correlate with clinical and laboratory data. 2. Cardiomegaly. Dictated by: Corinne Badillo MD, PhD on 11/20/2016 at 16:23 Approved by: Corinne Badillo MD, PhD on 11/20/2016 at 16:24 PROCEDURE: X-RAY CHEST ONE VIEW, PORTABLE ([id number]) INDICATIONS: SHORT OF BREATH TECHNIQUE: One view of the chest was acquired. COMPARISON: [facility], , XR CHEST 1VW (PORTABLE), 11/20/2016, 16: 13. FINDINGS: Surgical changes and devices: Stable position left chest AICD. Lungs and pleura: No pleural effusions or pneumothorax. Persistent bibasilar airspace opacities. Mediastinum: Mediastinal contours appear normal. Heart size is normal. Bones and chest wall: No suspicious bony lesions. Overlying soft tissues appear unremarkable. IMPRESSION: Bibasilar atelectasis versus aspiration or pneumonia. Correlate clinically. Dictated by: Tyron Nye RRA Interpreted: Corinne Badillo MD on 11/21/2016 at 10:41 Transcribed by: OLINDA on 11/21/2016 at 10:42 Approved by: Corinne Badillo MD, PhD on 11/21/2016 at 16:51 Cardiac Echo Impression ECHO (11/23/2016): Interpretation Summary Normal sinus rhythm. Normal LV size, wall thickness, wall motion and LV systolic function. EF is 60-65%. There is distal septal dyssynchrony consistent with RV pacing. Normal chamber sizes. No significant valvular abnormalities. There is a pacing lead traversing the tricuspid valve with trace associated TR. Estimated PA systolic pressure is 28 mm Hg assuming RA pressure of 3 mm Hg. No prior study available for comparison Other Diagnostics ABG DateTimeAnalyzed 17:04:00 -_ pH ____7.469 - 7.350 7.450 pCO2 ___41.9__ -mmHg 35.0 45.0 pO2 ___84.9__ -mmHg 69.0 116 HCO3- ___30.0__ -mmol/L 22.0 26.0 Brief History Patient is a 76 y.o. F with past medical history of Diabetes Type II insulin dependent 90 units lantus HS, HTN, CHF with pace maker and defibrillator in place, [place] 1999's s/p CABG 2 vessel, DJD, Depression, baseline bladder and bowel incotinence, numbness and tingling in her legs due to DJD of lumbar spine. She presented to the ED via EMS from [facility] with her daughter for worsening shortness of breath over the past two days with worsening non productive cough. Patient stated that she has become increasingly fatigued, short of breath, confused, she uses home oxygen, albuterol inhalers, and steroid inhaler and reported that she has had to increase her O2 at home from 2 L continous to 3 L and use her albuterol inhaler more but this has not made her better. She was seen by her PCP one week ago and placed on Xithromac and a predispose taper currently taking 10 mg PO QD, which she stated initially made her feel better but stopped working two days ago, patient reports good compliance with mediation. Patient denies fever, chills, nausea, vomiting, syncope, headache, change in vision, productive cough, coughing up blood, chest pain, chest pressure, edema in legs. Hospital Course 76 y.o. F with past medical history of Diabetes Type II insulin dependent 90 units lantus HS, HTN, CHF with pace maker and defibrillator in place, [place] 1999' s/p CABG 2 vessel, DJD, Depression, baseline bladder and bowel incontinence, numbness and tingling in her legs due to DJD of lumbar spine. Admitted for treatment of right lower lobe pneumonia. 1. Community acquired Pneumonia, acute. Present on admission - Patient failed conservative outpatient therapy - CXR shows presence of right lower lobe pneumonia and bibasilar infiltrates. - WCT 13.5 - Lactic acid 2.0, Trend Q2 - Continue ceftriaxone, and azithromycin day # 3 - WILL DISCHARGE ON ORAL ANTIBIOTIS TO COMPLETE 7 DAYS COURSE OF ANTIBIOTICS - Continue O2 4 L titrate to O2 sat 90-95 - Continuos Pulse Ox monitoring - Duoneb Q6, Budesonide neb BID - Finished the course of prednisone 40 mg - Procalcitonin: 0.04 - Sputum culture : negative - Blood culture: prelim negative after 48 hours Chronic Conditions DM Type II - Hold ome Lantus 90 units - Started 40 units Lantus - Diabetic diet 45 g carb - Med correctional insulin ordered HTN Continue home medications CHF - type unclear but likely chronic, will check echocardiogram. - Continue home medications - continue ASA 81 mg Hypothyroidism - Continue home levothyroxine Spinal stenosis - Continue home pain medicaiton Peripheral neuropathy GERD - Hold omeprazole Obstructive sleep apnea w/o CPAP - Continuos pulse ox monitoring Anxiety - Continue home medication Hyperlipidemia -Hold statin Exam Vital Signs (Last) Date Time Temp Pulse Resp B/P Pulse Ox O2 Delivery O2 Flow Rate FiO2 11/24/16 08:08 Supplement Oxygen 11/24/16 08:08 36.8 67 16 134/71 97 3.00 Exam General: Patient is lying in bed with head elevated approximately 30-45. She is in no apparent distress at present time. HEENT: Head is atraumatic and normocephalic. Eyes: Pupils are equally round and reactive to light and accommodation. Extraocular muscles are intact. Sclera are white, anicteric. Subconjunctival mucosa is pink. Ears and nose are unremarkable. Oropharynx: There is no mucosal lesions, there is no thrush, there is no pharyngitis. Neck: Is supple, there are no nodes, or masses or tenderness. Chest: Is significant for decreased breath sounds with crackles at the bases. Heart: Rate, rhythm is regular. There is no murmur, rub or gallop. Abdomen: Good bowel sounds are present. Abdomen is obese, soft, nontender, no organomegaly or masses were appreciated. Extremities: Are symmetrical and well perfused. There is no edema, there is no cellulitis, no rash. Neurologic: There are no focal neurological deficits. Cranial nerves II through XII are intact. There are no sensory or motor deficits. Psychiatric: Patients mood is calm and shows no sign of agitation. Test 11/20/16 16:07 11/20/16 18:00 11/20/16 18:10 11/20/16 22:48 Prothrombin Time 10.2sec (8.1-12.5) Prothromb Time International Ratio 0.95ratio Hemoglobin A1c 6.4% (4.8-5.6) Hold Marquez Top Tube Received (Received) Urine Color Yellow (YELLOW) Urine Appearance Hazy (CLEAR,HAZY) Urine pH 6.5 (5.0-8.0) Urine Specific Morton 1.010 (1.003-1.035) Urine Protein Negativemg/dL (NEG,TRACE) Urine Glucose (UA) Negativemg/dL (NEGATIVE) Urine Ketones Negativemg/dL (NEGATIVE) Urine Occult Blood Negative (NEGATIVE) Urine Nitrite Negative (NEGATIVE) Urine Bilirubin Negative (NEGATIVE) Urine Urobilinogen Normalmg/dL (NORMAL) Urine Leukocyte Esterase Negative (NEGATIVE) Urine RBC 0-2/hpf (0-2) Urine WBC 0-5/hpf (0-5) Urine Epithelial Cells Moderate/hpf (NONE-MOD) Urine Crystals None seen (NONE SEEN) Urine Bacteria Few/hpf (NONE-FEW) Urine Hyaline Casts None/lpf (NONE) Urine Granular Casts None seen (NONE SEEN) Urine Waxy Casts None seen (NONE SEEN) Urine Red Blood Cell Casts None seen (NONE SEEN) Urine White Blood Cell Casts None seen (NONE SEEN) Urine Mucus None seen (None Seen) Urine Trichomonas None seen (NONE SEEN) Urine Yeast None (NONE SEEN) Urinalysis Comment None Urine Culture Reflexed Not indicated Urine Legionella pneumophilia Ag Negative (Negative) Lactic Acid Level 1.2mmol/L (0.4-2.0) Test 11/22/16 05:35 11/23/16 05:55 11/24/16 05:07 Erythrocyte Sedimentation Rate 23mm/hr (0-40) Magnesium Level 1.9mg/dL (1.6-2.6) Troponin T 0.010ug/L (0.0-0.011) C-Reactive Protein 0.6mg/dL (0.0-0.5) Pro-B-Type Natriuretic Peptide 169.7pg/mL (0-738) Thyroid Stimulating Hormone (TSH) 0.824uIU/mL (0.450-4.500) Procalcitonin 0.04ng/mL (0.00-0.08) White Blood Count 13.5th/mm3 (3.8-10.1) Red Blood Count 4.21mil/mm3 (3.90-5.20) Hemoglobin 12.1g/dL (12.0-15.6) Hematocrit 37.8% (35.0-46.0) Mean Corpuscular Volume 89.8fL (81-100) Mean Corpuscular Hemoglobin 28.7pg (27.0-35.0) Mean Corpuscular Hemoglobin Concent 32.0% (32.0-37.0) Red Cell Distribution Width 15.6% (12.3-15.4) Platelet Count 280bil/L (150-400) Neutrophils (%) (Auto) 66.9% (40-74) Lymphocytes (%) (Auto) 24.4% (14-46) Monocytes (%) (Auto) 7.8% (4-12) Eosinophils (%) (Auto) 0.4% (0-5) Basophils (%) (Auto) 0.1% (0-3) Sodium Level 139mEq/L (134-144) Potassium Level 3.8mEq/L (3.5-5.2) Chloride Level 92mEq/L (97-108) Carbon Dioxide Level 33mmol/L (18-29) Blood Urea Nitrogen 18mg/dL (8-27) Creatinine 0.73mg/dL (0.57-1.00) Estimat Glomerular Filtration Rate 112mL/min (>59) Glucose Level 127mg/dL (60-99) Calcium Level 10.3mg/dL (8.5-10.1) Total Bilirubin 0.2mg/dL (0.0-1.2) Aspartate Amino Transf (AST/SGOT) 13U/L (0-50) Alanine Aminotransferase (ALT/SGPT) 19U/L (0-32) Alkaline Phosphatase 74U/L (25-165) Total Protein 6.6g/dL (6.4-8.4) Albumin 3.8g/dL (3.4-5.0) Discharge Medications Discharge Medications Allopurinol (Allopurinol) 100 Mg Tablet 100 MG PO DAILY (Reported) Aspirin (Aspirin) 81 Mg Tablet 81 MG PO DAILY (Reported) Atorvastatin (Lipitor) 80 Mg Tablet 40 MG PO HS (Reported) Azithromycin (Azithromycin) 500 Mg Tablet 500 MG PO DAILY Prescribed by: FACUNDO CARRASCO MD Beclomethasone Dipropionate (Qvar) 8.7 Gm Aer.w.adap 1 PUFF INHALATION BID ( Reported) Carvedilol (Carvedilol) 25 Mg Tablet 25 MG PO BID (Reported) Cefuroxime Axetil (Cefuroxime) 500 Mg Tablet 500 MG PO BID Prescribed by: FACUNDO CARRASCO MD Cyanocobalamin (Vitamin B-12) (B-12) 2,500 Mcg Tab.subl 2,500 MCG SL DAILY ( Reported) Furosemide (Furosemide) 40 Mg Tablet 60 MG PO BID (Reported) Gabapentin (Gabapentin) 600 Mg Tablet 600 MG PO TID (Reported) Insulin Glargine (Lantus U100 Insulin Vial) 100 Unit/Ml Vial 90 UNIT SUBQ HS ( Reported) Isosorbide MN ER (Isosorbide MN ER) 30 Mg Tab.er.24h 30 MG PO DAILY (Reported) Levothyroxine (Levothyroxine) 75 Mcg Tablet 75 MCG PO DAILY (Reported) Lisinopril (Lisinopril) 10 Mg Tablet 5 MG PO DAILY (Reported) Omeprazole (Omeprazole) 20 Mg Capsule.dr 20 MG PO BID (Reported) Oxybutynin Chloride (Oxybutynin Chloride) 5 Mg Tablet 5 MG PO BID (Reported) Potassium Chloride ER (Potassium Chloride ER) 10 Meq Tablet 5 MEQ PO DAILY ( Reported) TAKE WITH FOOD Prednisone (PredniSONE) 10 Mg Tablet 10 MG PO DAILY (Reported) x4 more days (taper) Venlafaxine (Venlafaxine) 75 Mg Tablet 150 MG PO QAM (Reported) Venlafaxine (Venlafaxine) 75 Mg Tablet 75 MG PO HS (Reported) As needed Albuterol Neb Soln (Albuterol Neb Soln) 0.63 Mg/3 Ml Vial.neb 0.63 MG INHALATION Q4H PRN PRN For Shortness of Breath (Reported) Albuterol Sulfate (Ventolin HFA Inhaler) 200 Puff/18 Gm Inhaler 1-2 PUFFS INHALATION QID PRN PRN For Shortness of Breath (Reported) Alprazolam (Alprazolam) 1 Mg Tablet 1 MG PO HS PRN PRN Insomnia (Reported) Nitroglycerin SL (Nitrostat) 0.4 Mg Tab.subl 0.4 MG SL Q5MIN PRN PRN For Chest Pain (Reported) Tizanidine (Tizanidine) 2 Mg Tablet 2 MG PO HS PRN PRN For Spasm (Reported) oxyCODONE-Acetaminophen 5-325 mg (oxyCODONE-Acetaminophen 5-325 mg) 1 Each Tablet 1 EACH PO QID PRN PRN For Pain (Reported) Followup Plan Discharge Diet: Heart Healthy, Diabetic Follow-up with PCP in: 2 weeks Facundo Carrasco MD Nov 24, 2016 09:33
[2016-11-24] MEDS: Budesonide 0.5 mg/2 mL Inhalation Solution NEB SCH (09:51)
[2016-11-24] MEDS: Azithromycin Inj 500 MG in Dextrose 5% w/Vial Mate 250 ML IV SCH (10:40)
== END 2016-11-24 12:50 | disposition home or self-care (01) | DRG 195 ==
LOC: SED 15:55 → EDBD 15:55 → MPC 20:22
PROVIDERS: ADMIT Hospitalist; ATTEND Hospitalist
PROC: 4A033R1 Measurement of Arterial Saturation, Peripheral, Percutaneous Approach (ICD-10-PCS; principal; 2016-11-20)
DX: J18.9 Pneumonia, unspecified organism (principal); Z95.5 Presence of coronary angioplasty implant and graft; Z95.810 Presence of automatic (implantable) cardiac defibrillator; Z79.82 Long term (current) use of aspirin; Z79.4 Long term (current) use of insulin; Z79.52 Long term (current) use of systemic steroids; Z95.1 Presence of aortocoronary bypass graft; I25.2 Old myocardial infarction; E11.9 Type 2 diabetes mellitus without complications; I10 Essential (primary) hypertension; I50.9 Heart failure, unspecified; E03.9 Hypothyroidism, unspecified; M48.00 Spinal stenosis, site unspecified; G47.33 Obstructive sleep apnea (adult) (pediatric); F41.9 Anxiety disorder, unspecified; Z66 Do not resuscitate